=== PATIENT | male | born 1955 | race Caucasian/White ===

== ENCOUNTER 2021-04-28 16:53 | Inpatient (IN) ==
[2021-04-28 18:09] LABS: Basophils % 0.6 %; Eosinophils # 0.2 K/mcL (0.0-0.6); Eosinophils % 3.6 %; Hematocrit 42.7 % (37.5-50.1); Hemoglobin 14.1 g/dL (12.9-16.9); Immature Granulocytes % 0.2 % (0-4); Lymphocytes # 0.9 K/mcL (0.6-4.6); Lymphocytes % 16.9 %; Mean Corpuscular Hemoglobin 32.2 pg (28.0-33.3); Mean Corpuscular Volume 97.5 fL (83.0-100.0); Mean Platelet Volume 9.5 fL (9.4-12.4); Monocytes # 0.6 K/mcL (0.0-1.3); Monocytes % 11.4 %; Neutrophils # 3.6 K/mcL (1.6-8.9); Platelet Count 269 K/mcL (140-400); Red Blood Count 4.38 M/mcL (4.19-5.50); Red Cell Distribution Width 12.3 % (11.5-14.5); Segmented Neutrophils % 67.3 %; White Blood Count 5.3 K/mcL (4.3-11.1)
[2021-04-28 18:41] LABS: BUN/Creatinine Ratio 24 (6-26); Blood Urea Nitrogen 18 mg/dL (8-23); Calcium 9.1 mg/dL (8.6-10.3); Carbon Dioxide 27 mEq/L (23-29); Chloride 103 mEq/L (98-107); Glucose 108 mg/dL (70-105); Osmolality,Calculated 290 (280-300); Potassium 4.4 mEq/L (3.5-5.1); Sodium 139 mEq/L (136-145); Troponin I < 0.03 ng/mL (< 0.04); eGFR For African Americans > 60 (> 60); eGFR For Non-African Americans > 60 (> 60)
[2021-04-28] MEDS ORDERED: Aspirin 325 MG TABLET PO ONE (19:48)
[2021-04-28] MEDS ORDERED: Ondansetron 4 MG/2 ML VIAL IVP PRN (21:54)
[2021-04-28] MEDS ORDERED: Naloxone 0.4 MG/ML INJ IVP PRN (21:54)
[2021-04-28] MEDS ORDERED: Melatonin 3 MG TABLET PO PRN (21:54)
[2021-04-28] MEDS ORDERED: Acetaminophen 325 MG TABLET PO PRN (21:54)
[2021-04-29 06:34] LABS: Basophils % 0.3 %; Eosinophils # 0.2 K/mcL (0.0-0.6); Eosinophils % 2.6 %; Hematocrit 45.7 % (37.5-50.1); Hemoglobin 15.3 g/dL (12.9-16.9); Immature Granulocytes % 0.1 % (0-4); Lymphocytes # 1.2 K/mcL (0.6-4.6); Lymphocytes % 17.2 %; Mean Corpuscular HGB Conc 33.5 g/dL (31.6-35.5); Mean Corpuscular Volume 98.7 fL (83.0-100.0); Mean Platelet Volume 9.5 fL (9.4-12.4); Monocytes # 0.5 K/mcL (0.0-1.3); Monocytes % 7.7 %; Platelet Count 291 K/mcL (140-400); Red Blood Count 4.63 M/mcL (4.19-5.50); Red Cell Distribution Width 12.8 % (11.5-14.5); Segmented Neutrophils % 72.1 %
[2021-04-29 06:51] LABS: Alanine Aminotransferase 25 Units/L (7-52); Albumin 4.4 g/dL (3.5-5.7); Albumin/Globulin Ratio 1.5 (1.1-2.2); Alkaline Phosphatase 106 Units/L (34-104); Aspartate Amino Transferase 19 Units/L (13-39); BUN/Creatinine Ratio 20 (6-26); Bilirubin,Total 0.3 mg/dL (0.3-1.0); Blood Urea Nitrogen 19 mg/dL (8-23); Calcium 9.3 mg/dL (8.6-10.3); Carbon Dioxide 30 mEq/L (23-29); Chloride 105 mEq/L (98-107); Glucose 96 mg/dL (70-105); Magnesium 2.3 mg/dL (1.6-2.6); Osmolality,Calculated 296 (280-300); Phosphorous 3.9 mg/dL (2.7-4.5); Potassium 4.3 mEq/L (3.5-5.1); Sodium 142 mEq/L (136-145); Total Protein 7.4 g/dL (6.4-8.9); eGFR For African Americans > 60 (> 60); eGFR For Non-African Americans > 60 (> 60)
[2021-04-29] MEDS ORDERED: Regadenoson 0.4 MG/5 ML SYRINGE IVP ONE ×2 (07:01→13:31)
[2021-04-30 03:10] LABS: Chol/HDL Ratio 4.4 (0-4.9)
[2021-04-30 03:22] LABS: Thyroid Stimulating Hormone 2.268 mcIU/mL (0.340-5.600)
[2021-04-30 08:09] LABS: Estimated Average Glucose 108 mg/dl; Hemoglobin A1C 5.4 %
[2021-04-30] MEDS ORDERED: atenoloL 25 MG TABLET PO SCH ×2 (09:00)
[2021-04-30] MEDS: Divalproex (24 HR) 500 MG TABLET PO SCH ×2 (10:21→20:47)
[2021-04-30] MEDS: BuPROPion XL (24 HR) 150 MG TABLET PO SCH (10:21)
[2021-04-30] MEDS: Aspirin Enteric Coated 81 MG Tablet PO SCH (10:21)
[2021-04-30] MEDS: polyethylene glycoL 3350 17 GM POWD.PACK PO SCH (10:21)
[2021-04-30] MEDS ORDERED: Perflutren Lipid Microsphere 1.3 ML in 0.9 % Sodium Chloride 8.7 ML IVP PRN (11:38)
[2021-05-01 04:13] VITALS: TEMP 97.5
[2021-05-01] MEDS: BuPROPion XL (24 HR) 150 MG TABLET PO SCH (08:44)
[2021-05-01] MEDS: Aspirin Enteric Coated 81 MG Tablet PO SCH (08:44)
[2021-05-01] MEDS: polyethylene glycoL 3350 17 GM POWD.PACK PO SCH (08:44)
[2021-05-01] MEDS: Divalproex (24 HR) 500 MG TABLET PO SCH (08:44)
[2021-05-01] MEDS ORDERED: amLODIPine 5 MG TABLET PO SCH (09:00)
[2021-05-01] MEDS ORDERED: atenoloL 25 MG TABLET PO SCH (09:00)
[2021-05-01 13:59] VITALS: BP 113/71; PULSE 59; O2SAT 93
== END 2021-05-01 15:32 | disposition home or self-care (01) | DRG 313 ==
LOC: EMEROOARM 16:53 → 3NENU 16:53 → SUATTDRO 20:19 → 3NENU 21:05
PROVIDERS: ADMIT Family Medicine; ATTEND Internal Medicine